=== PATIENT | female | born 1960 | race Caucasian/White ===

== ENCOUNTER → 2016-06-30 | Outpatient (CLI) | payer BC ==
[~2016-06-30] VITALS: Ht 162.6 cm; Wt 116.8 kg
[~2016-06-30] MED LIST: ASPIRIN E.C. 8181 MG PO; COLACE 100100 MG/CAP PO; CONTRAVE1 TER PO; FASTIN30 MG PO; FLONASEALLERGY NS; GLUCOPHAGE500 MG/TAB PO; IRON325 MG PO; MOBIC15 MG PO; MULTIPLE VITAMI PO; NAPROSYN500 MG PO; PHENTERMINE15 MG; SYNTHROID0.112 MG/T PO; SYNTHROID0.125 MG/T PO; VICTOZA6 MG/ML SC; ZESTRIL 20MG TA20 MG PO; ZOCOR 40MG40 MG PO
[2016-06-30 14:53] VITALS: BP 115/56; PULSE 67
[2016-08-01 17:09] VITALS: BP_SYST 162.56
== END ==
LOC: LIGHT 09:00
DX: E88.81 Metabolic syndrome and other insulin resistance (principal); E11.9 Type 2 diabetes mellitus without complications; E66.01 Morbid (severe) obesity due to excess calories; Z68.42 Body mass index [BMI] 45.0-49.9, adult; I10 Essential (primary) hypertension

== ENCOUNTER → 2016-09-01 | Outpatient (CLI) | payer BC ==
[~2016-09-01] VITALS: Ht 162.6 cm; Wt 113.6 kg
[2016-09-01 08:56] VITALS: BP 110/50; PULSE 70
== END ==
LOC: LIGHT 08:50
DX: E88.81 Metabolic syndrome and other insulin resistance (principal); E11.9 Type 2 diabetes mellitus without complications; E66.01 Morbid (severe) obesity due to excess calories; Z68.41 Body mass index [BMI] 40.0-44.9, adult; I10 Essential (primary) hypertension; Z90.49 Acquired absence of other specified parts of digestive tract

== ENCOUNTER → 2016-10-27 | Outpatient (CLI) | payer BC ==
[~2016-10-27] VITALS: Ht 162.6 cm; Wt 113.6 kg
[2016-10-27 10:18] VITALS: BP 136/72; PULSE 60
== END ==
LOC: LIGHT 10:15
DX: E88.81 Metabolic syndrome and other insulin resistance (principal); E11.9 Type 2 diabetes mellitus without complications; E66.01 Morbid (severe) obesity due to excess calories; Z68.41 Body mass index [BMI] 40.0-44.9, adult; Z71.3 Dietary counseling and surveillance; I10 Essential (primary) hypertension

== ENCOUNTER → 2016-12-15 | Outpatient (CLI) | payer BC ==
[~2016-12-15] VITALS: Ht 162.6 cm; Wt 113.2 kg
[2016-12-15 14:53] VITALS: BP 128/50; PULSE 70
== END ==
LOC: LIGHT 11:27
DX: E88.81 Metabolic syndrome and other insulin resistance (principal); E11.9 Type 2 diabetes mellitus without complications; E66.01 Morbid (severe) obesity due to excess calories; Z68.41 Body mass index [BMI] 40.0-44.9, adult; Z71.3 Dietary counseling and surveillance; I10 Essential (primary) hypertension

== ENCOUNTER → 2017-02-09 | Outpatient (CLI) | payer BC ==
[~2017-02-09] VITALS: Ht 162.6 cm; Wt 112.0 kg
[2017-02-09 09:20] VITALS: BP 118/78; PULSE 72
== END ==
LOC: LIGHT 09:40
DX: E88.81 Metabolic syndrome and other insulin resistance (principal); E11.9 Type 2 diabetes mellitus without complications; E66.01 Morbid (severe) obesity due to excess calories; Z68.41 Body mass index [BMI] 40.0-44.9, adult; Z71.3 Dietary counseling and surveillance; I10 Essential (primary) hypertension

== ENCOUNTER → 2017-02-16 | Outpatient (CLI) | payer BC | LOC: MC.RAD 14:35 | DX: Z12.31 Encounter for screening mammogram for malignant neoplasm of breast (principal) ==

== ENCOUNTER → 2017-04-20 | Outpatient (CLI) | payer BC ==
[~2017-04-20] VITALS: Ht 162.6 cm; Wt 112.5 kg
[2017-04-20 09:08] VITALS: BP 130/80; PULSE 72
== END ==
LOC: LIGHT 08:43
DX: E88.81 Metabolic syndrome and other insulin resistance (principal); E11.9 Type 2 diabetes mellitus without complications; E66.01 Morbid (severe) obesity due to excess calories; Z68.41 Body mass index [BMI] 40.0-44.9, adult; Z71.3 Dietary counseling and surveillance; I10 Essential (primary) hypertension

== ENCOUNTER → 2017-06-22 | Outpatient (CLI) | payer BC ==
[~2017-06-22] VITALS: Ht 162.6 cm; Wt 115.2 kg
[2017-06-22 08:41] VITALS: BP 140/66; PULSE 68
== END ==
LOC: LIGHT 08:32
DX: E88.81 Metabolic syndrome and other insulin resistance (principal); E11.9 Type 2 diabetes mellitus without complications; E66.01 Morbid (severe) obesity due to excess calories; Z68.41 Body mass index [BMI] 40.0-44.9, adult; Z71.3 Dietary counseling and surveillance; I10 Essential (primary) hypertension
CPT/HCPCS: G0463

== ENCOUNTER → 2017-08-17 | Outpatient (CLI) | payer BC ==
[~2017-08-17] VITALS: Ht 162.6 cm; Wt 115.2 kg
[2017-08-17 08:58] VITALS: BP 106/64; PULSE 64
== END ==
LOC: LIGHT 08:52
DX: E88.81 Metabolic syndrome and other insulin resistance (principal); E11.9 Type 2 diabetes mellitus without complications; E66.01 Morbid (severe) obesity due to excess calories; Z68.41 Body mass index [BMI] 40.0-44.9, adult; Z71.3 Dietary counseling and surveillance; I10 Essential (primary) hypertension
CPT/HCPCS: G0463

== ENCOUNTER → 2017-10-19 | Outpatient (CLI) | payer BC ==
[~2017-10-19] VITALS: Ht 162.6 cm; Wt 114.8 kg
[~2017-10-19] MED LIST changes: +CELEBREX 200MG200 MG PO; +LIPITOR20 MG PO
[2017-10-19 09:08] VITALS: BP 110/64; PULSE 60
== END ==
LOC: LIGHT 08:41
DX: E88.81 Metabolic syndrome and other insulin resistance (principal); E11.9 Type 2 diabetes mellitus without complications; E66.01 Morbid (severe) obesity due to excess calories; Z68.41 Body mass index [BMI] 40.0-44.9, adult; Z71.3 Dietary counseling and surveillance; I10 Essential (primary) hypertension
CPT/HCPCS: G0463

== ENCOUNTER → 2017-12-21 | Outpatient (CLI) | payer BC ==
[~2017-12-21] VITALS: Ht 162.6 cm; Wt 114.8 kg
[2017-12-21 09:13] VITALS: BP 108/68; PULSE 64
== END ==
LOC: LIGHT 08:45
DX: E88.81 Metabolic syndrome and other insulin resistance (principal); E11.9 Type 2 diabetes mellitus without complications; I10 Essential (primary) hypertension; E66.01 Morbid (severe) obesity due to excess calories; Z68.41 Body mass index [BMI] 40.0-44.9, adult; Z71.3 Dietary counseling and surveillance
CPT/HCPCS: G0463

== ENCOUNTER → 2018-02-22 | Outpatient (CLI) | payer BC ==
[~2018-02-22] VITALS: Ht 162.6 cm; Wt 115.9 kg
[~2018-02-22] MED LIST changes: +ADIPEX-P37.5 MG PO
[2018-02-22 09:26] VITALS: BP 128/80; PULSE 80
== END ==
LOC: LIGHT 08:55
DX: E88.81 Metabolic syndrome and other insulin resistance (principal); E11.9 Type 2 diabetes mellitus without complications; I10 Essential (primary) hypertension; E66.01 Morbid (severe) obesity due to excess calories; Z68.43 Body mass index [BMI] 50.0-59.9, adult; Z71.3 Dietary counseling and surveillance
CPT/HCPCS: G0463

== ENCOUNTER 2018-06-18 18:20 | Emergency (ER) | payer BC ==
[~2018-06-18] VITALS: Ht 162.6 cm; Wt 118.2 kg
[2018-06-18 18:23] VITALS: TEMP 97.6
[2018-06-18] MEDS ORDERED: ULTRAM 50MG TAB50 MG PO (19:51)
[2018-06-18 20:27] VITALS: BP 143/71; PULSE 65
== END 2018-06-18 20:37 | disposition home or self-care (01) ==
LOC: COL.ER 18:20
DX: S43.004A Unspecified dislocation of right shoulder joint, initial encounter (principal); I10 Essential (primary) hypertension; Z79.84 Long term (current) use of oral hypoglycemic drugs; Z79.82 Long term (current) use of aspirin; Z79.51 Long term (current) use of inhaled steroids; Z98.890 Other specified postprocedural states; W18.39XA Other fall on same level, initial encounter; Y92.009 Unspecified place in unspecified non-institutional (private) residence as the place of occurrence of the external cause
CPT/HCPCS: J2060; J2405; J3010

== ENCOUNTER 2024-03-15 07:47 | Day surgery (SDC) | payer OTHER ==
[~2024-03-15] VITALS: Ht 160 cm; Wt 104.7 kg
[2024-03-15] VITALS (13 sets, daily range): BP systolic 109–140; BP diastolic 46–86; PULSE 70–82; TEMP 97–98.8
[~2024-03-15 07:47] MED LIST changes: +LR 1,000 ML IV SCH; +ULTRAM 50MG TAB50 MG PO
[2024-03-15] MEDS ORDERED: Midazolam 2 MG/2 ML VIAL ONE (08:32)
[2024-03-15] MEDS ORDERED: Lidocaine PF 2% (20 MG/ML) 5 ML VIAL ONE (08:33)
[2024-03-15] MEDS ORDERED: NS 10 ML IV ONE (08:34)
[2024-03-15] MEDS ORDERED: ZOCOR 80MG80 MG PO (09:31)
[2024-03-15] MEDS ORDERED: NEURONTIN400 MG/CAP PO (09:35)
[2024-03-15] MEDS ORDERED: HCTZ 25MG TAB25 MG PO (09:36)
[2024-03-15] MEDS ORDERED: PRINZIDE 25 MG-1 TAB PO (09:36)
[2024-03-15] MEDS ORDERED: ULTRAM 50MG TAB50 MG PO (09:37)
[2024-03-15] MEDS ORDERED: MOUNJARO15 MG/0.5 SQ (09:37)
[2024-03-15] MEDS ORDERED: VOLTAREN GEL 1%1 TU TP (09:38)
[2024-03-15] MEDS ORDERED: Acetaminophen 500 MG TAB PO PRN (11:00)
[2024-03-15] MEDS ORDERED: Naloxone 0.4 MG/ML VIAL IV PRN (11:00)
[2024-03-15] MEDS ORDERED: NS 1,000 ML IV SCH (11:00)
[2024-03-15] MEDS ORDERED: Ondansetron 4 MG/2 ML VIAL IV PRN ×2 (11:00→12:00)
[2024-03-15] MEDS ORDERED: oxyCODONE 5 MG TAB PO PRN ×2 (11:00)
[2024-03-15] MEDS ORDERED: Magnes Hydrox (MOM) 80 MG/ML 30 ML CUP PO PRN (11:00)
[2024-03-15] MEDS ORDERED: Bisacodyl 5 MG TAB PO PRN (11:00)
[2024-03-15] MEDS ORDERED: Mag/Al Hydrox/Simeth Susp 30 ML CUP PO PRN (11:00)
[2024-03-15] MEDS ORDERED: Morphine 4 MG/ML VIAL IV PRN (11:00)
[2024-03-15] MEDS ORDERED: Tranexamic Acid 1,000 MG/10 ML VIAL ONE (11:19)
[2024-03-15] MEDS ORDERED: Acetaminophen 500 MG TAB PO SCH (11:50)
[2024-03-15] MEDS ORDERED: HYDROmorphone 1 MG/1 ML SYRINGE [PACU/SDC ONLY] IV PRN (12:00)
[2024-03-15] MEDS ORDERED: droPERidol 2.5 MG/ML 2 ML VIAL IV PRN (12:00)
[2024-03-15] MEDS ORDERED: fentaNYL 50 MCG/ML 1 ML SYRINGE/VIAL [PACU/SDC ONLY] IV PRN (12:00)
[2024-03-15] MEDS ORDERED: Morphine 4 MG/ML VIAL IM ONE (12:50)
[2024-03-15] MEDS ORDERED: fentaNYL 50 MCG/ML 2 ML VIAL ONE (14:29)
--- NOTE | 2024-03-15 16:00 | NUR ---
Pt recently arrived to the floor from [facility]. She is awake and alert. No pain complaints but states that her right hip is achy. Pt repositioned again. SCDs on bilaterally. She has a jorden hose on her left leg. [facility] nurse stated that there wasn't another one for her right leg. Ice to her right hip. Drsg to her right hip is CDI. IV to her left hand with fluids infusing. Oriented pt to her room as well as room service and diet orders. Informed her that a medical dr would be seeing her today or tomorrow.
[2024-03-15] MEDS ORDERED: ceFAZolin 2 G in Water For Injection,Sterile 20 ML IV SCH (16:45)
[2024-03-15] MEDS ORDERED: Insulin Lispro (HumaLOG) SQ SCH (17:00)
--- NOTE | 2024-03-15 17:24 | NUR ---
Pt had some complaints of her right hip achying which was increasing. PRN and scheduled pain medication given recently. Pt reports that her right leg, below her bottom is burning. She stated that this is chronic for her. We have tried repositioning her, putting pillows under her leg, raising the bed to raise her leg etc. Assisted pt to sitting which she stated helped. Attempted to assist her to the restroom to attempt to urinate. Pt stood, but only stood a short time and then stated that she felt dizzy. She also reported not feeling like he needed to go to the bathroom. Assisted her back in to the bed. Dr Guevara rounded on pt at this time as well. Pt has family in the room that helped with ordering her dinner.
--- NOTE | 2024-03-15 17:41 | NUR ---
Discussed IS with RT, informed caustic cresylate shift superintendent would come and educate pt on use
--- NOTE | 2024-03-15 18:47 | NUR ---
pt has tolerated applesauce. She stated that she does not feel like dinner right now. Pt having complaints of cramping in her right thigh to lower back, called and got an order for K-Pad. PCT in helping pt sit on the side of the bed
[2024-03-15] MEDS ORDERED: Sennosides/Docusate 8.6-50 MG TAB PO SCH (21:00)
[2024-03-15] MEDS ORDERED: Celecoxib 200 MG CAP PO SCH (21:00)
[2024-03-15] MEDS ORDERED: Ascorbic Acid 500 MG TAB PO SCH (21:00)
[2024-03-15] MEDS ORDERED: Gabapentin 400 MG CAP PO SCH (21:00)
[2024-03-15] MEDS ORDERED: Apixaban 2.5 MG TABLET PO SCH (21:00)
[2024-03-15] MEDS ORDERED: Famotidine 20 MG TAB PO SCH (21:00)
[2024-03-16 03:11] VITALS: BP 105/46; PULSE 83; TEMP 97.9
[2024-03-16 04:00] VITALS: BP_SYST 105
[2024-03-16 06:40] LABS: HEMATOCRIT 25.7 % (37.0-47.0); HEMOGLOBIN 8.8 g/dl (12.5-16.0)
--- NOTE | 2024-03-16 06:45 | NUR ---
PAIN CONTROLLED WITH PO PAIN MEDS, TOLERATING DIET W/O N/V, IV TO INT THIS AM. UP TO RESTROOM WITH SBA USING WALKER, DSG TO RT HIP CDI. NO SSI REQUIRED THIS SHIFT.
[2024-03-16 06:52] LABS: CALCIUM 8.3 mg/dL (8.4-10.2); CREATININE, serum 0.68 mg/dL (0.57-1.11)
[2024-03-16] MEDS ORDERED: CEPHALEXIN500 M1 PO (07:55)
[2024-03-16] MEDS ORDERED: ULTRAM 50MG TAB50 MG PO (07:56)
[2024-03-16] MEDS ORDERED: OXY IR5 MG PO (07:56)
[2024-03-16 08:00] VITALS: BP_SYST 105
[2024-03-16] MEDS ORDERED: ELIQUIS 2.5 PO (08:00)
--- NOTE | 2024-03-16 08:00 | NUR ---
PATIENT IS A&O. VSS. REPORTS MIN TO MOD PAIN IN RLE THAT INCREASES WITH ACTIVITY. PATIENT REQUESTING SOMETHING FOR PAIN BEFORE AM THERAPY. GAVE PRN ROXICODONE WITH AM MEDS. RTH DRESSING IS CD&I WITH GAUZE/ABD/PAPER TAPE. TEDS & SCD'S TO BLE. POSITIVE PEDAL PULSES. PATIENT EAT/DRINK/VOIDING SUFFICENT AMOUNTS. BREAKFAST TRAY ORDERED. AM BS WAS 104, NO SSI REQUIRED. LEFT HAND IV TO INT. AM MEDS GIVEN. HEAD TO TOE ASSESSMENT COMPLETE. PATIENT ASSISTED TO BATHROOM AND THEN TO BEDSIDE CHAIR WITH 1 ASSIST AND WALKER. PT/OT CONSULTED. ROUNDED THIS AM, SEE ORDERS. NO OTHER NEEDS AT THIS TIME. CALL LIGHT IN REACH.
[2024-03-16 08:02] VITALS: BP 105/64; PULSE 71; TEMP 98.5
[2024-03-16] MEDS ORDERED: Fluticasone Nasal 50 MCG/Spray 16 GM BOTTLE NS SCH (09:00)
[2024-03-16] MEDS ORDERED: Magnes Hydrox (MOM) 80 MG/ML 30 ML CUP PO SCH (09:00)
[2024-03-16 11:40] VITALS: BP 106/69; PULSE 75; TEMP 97.9
--- NOTE | 2024-03-16 12:53 | NUR ---
Data: Patient accepted spiritual care visit offered during Storage Receipt Poster rounds. Patient's sister and [id number] joined the visit for the prayer. Patient hopes to discharge today. Assessment: Hopeful and positive. Plan of Care: Storage Receipt Poster offered supportive listening and prayer. All thanked Storage Receipt Poster for the visit. Chaplains will remain available as needed/requested while Patient is admitted to this hospital.
--- NOTE | 2024-03-16 14:50 | NUR ---
PATIENT DISCHARGING HOME VIA WC TO PERSONAL VEHICLE WITH SON. GAVE DISCHARGE INSTRUCTIONS, E-SCRIPTS SENT, AND DISCUSSED F/U APT. ANSWERED QUESTIONS/CONCERNS. DC'D LEFT HAND IV AND COVERED SITE WITH GAUZE & TAPE. PATIENT IS DRESSED, PACKED AND ESCORTED OUT.
== END 2024-03-16 15:00 | disposition home or self-care (01) ==
LOC: SDCO 07:47 → SURG 15:25 → SDCO 03-16 15:00
PROVIDERS: Orthopaedic Surgery
DX: M16.11 Unilateral primary osteoarthritis, right hip (principal); G47.33 Obstructive sleep apnea (adult) (pediatric); E66.9 Obesity, unspecified; D64.9 Anemia, unspecified; I10 Essential (primary) hypertension; E78.5 Hyperlipidemia, unspecified; E11.40 Type 2 diabetes mellitus with diabetic neuropathy, unspecified; E03.9 Hypothyroidism, unspecified; Z79.890 Hormone replacement therapy; Z79.82 Long term (current) use of aspirin; Z99.89 Dependence on other enabling machines and devices; Z79.899 Other long term (current) drug therapy; Z79.84 Long term (current) use of oral hypoglycemic drugs
CPT/HCPCS: OP; A9284; C1763; C1776; J0688; J0690; J2250; J2270; J2405; J2704; J2795; J3010; J7030; J7120